=== PATIENT | male | born 2000 | race Caucasian/White ===

== ENCOUNTER 2021-06-19 21:24 | Emergency (ER) | payer OTHER ==
[~2021-06-19] VITALS: Ht 182.9 cm; Wt 70.5 kg
[2021-06-19 21:30] VITALS: TEMP 98.3
[2021-06-19 22:24] VITALS: BP 145/84; PULSE 97
== END 2021-06-19 22:24 | disposition home or self-care (01) ==
LOC: COL.ER 21:24
DX: S62.615A Displaced fracture of proximal phalanx of left ring finger, initial encounter for closed fracture (principal); S60.032A Contusion of left middle finger without damage to nail, initial encounter; W21.11XA Struck by baseball bat, initial encounter; Y93.01 Activity, walking, marching and hiking; Y92.320 Baseball field as the place of occurrence of the external cause

== ENCOUNTER 2023-01-01 13:55 | Emergency (ER) | payer OTHER ==
[~2023-01-01] VITALS: Ht 182.9 cm; Wt 79.5 kg
[2023-01-01 15:41] VITALS: BP 130/75; PULSE 93; TEMP 98.2
== END 2023-01-01 15:32 | disposition home or self-care (01) ==
LOC: COL.ER 13:55
DX: S69.91XA Unspecified injury of right wrist, hand and finger(s), initial encounter (principal); Z98.890 Other specified postprocedural states; X50.1XXA Overexertion from prolonged static or awkward postures, initial encounter; Y93.B2 Activity, push-ups, pull-ups, sit-ups